=== PATIENT | female | born 1935 | race Caucasian/White ===

== ENCOUNTER 2016-09-17 12:35 | Inpatient (IN) | payer OTHER ==
[~2016-09-17] VITALS: Ht 165.1 cm; Wt 95.3 kg
[2016-09-17 12:35] VITALS: BP 160/72
[2016-09-17] MEDS ORDERED: DULOXETINE HCL60 MG PO (13:06)
[2016-09-17] MEDS ORDERED: ONETOUCH ULTRA1 EACH MC (13:06)
[2016-09-17 13:07] LABS: BASO # 0.1 10*3/uL (0.0-0.1); BASO % 0.7 % (0.0-1.0); EOS # 0.3 10*3/uL (0.0-0.4); EOS % 3.5 % (1.0-4.0); HEMATOCRIT 36.5 % (37.0-47.0); HEMOGLOBIN 12.3 g/dl (12.0-16.0); LYMPH # 3.2 10*3/uL (1.3-4.4); LYMPH % 41.8 % (27.0-41.0); MEAN CELL VOLUME 86.9 fl (81.0-99.0); MEAN CORPUSCULAR HGB 29.3 pg (27.0-31.0); MEAN CORPUSCULAR HGB CONC 33.7 g/dl (33.0-37.0); MEAN PLATELET VOLUME 10.6 fl (9.6-12.3); MONO # 0.6 10*3/uL (0.1-1.0); MONO % 7.8 % (3.0-9.0); NEUT # 3.5 10*3/uL (2.3-7.9); NEUT % 46.1 % (47.0-73.0); PLATELET COUNT AUTOMATED 174 10*3/uL (130-400); RED CELL DISTRI WIDTH 13.4 % (0-14.5); WHITE BLOOD COUNT 7.5 10*3/uL (4.8-10.8)
[2016-09-17] MEDS ORDERED: JANUVIA100 MG PO (13:07)
[2016-09-17] MEDS ORDERED: SPIRIVA -- 3018 MCG INH (13:07)
[2016-09-17] MEDS ORDERED: OMEPRAZOLE40 MG PO (13:07)
[2016-09-17] MEDS ORDERED: ACETAMINOPHEN &1 TA1 PO (13:07)
[2016-09-17] MEDS ORDERED: ASPIRIN ADULT L81 M2 PO (13:08)
[2016-09-17] MEDS ORDERED: LEVOTHYROXIN0.125 M1 PO (13:08)
[2016-09-17] MEDS ORDERED: MAGNESIUM500 MG PO (13:09)
[2016-09-17] MEDS ORDERED: VALSARTAN-HCTZ1 EAC1 PO (13:09)
[2016-09-17] MEDS ORDERED: LEVEMIR10 ML SC (13:10)
[2016-09-17 13:19] LABS: INTERNATIONAL NORM RATIO 1.1 (2.0-3.5); PROTHROMBIN TIME 11.2 SECONDS (9.0-12.4)
[2016-09-17 13:20] LABS: BILIRUBIN NEGATIVE (NEGATIVE); BLOOD NEGATIVE (NEGATIVE); CLARITY CLEAR (CLEAR); COLOR YELLOW (YELLOW); GLUCOSE NEGATIVE (NEGATIVE); KETONE NEGATIVE (NEGATIVE); LEUKO ESTERASE NEGATIVE (NEGATIVE); NITRITE NEGATIVE (NEGATIVE); PH 8.5 (5.0-9.0); PROTEIN NEGATIVE (NEGATIVE); UROBILINOGEN 0.2 E.U./dl (0.2-1.0)
[2016-09-17 13:22] LABS: ALKALINE PHOSPHATASE 70 U/L (45-117); BUN 17 mg/dl (7-24); C-REACTIVE PROTEIN < 0.29 MG/DL (0-0.3); CARBON DIOXIDE 32 mmol/L (21-32); CHLORIDE 106 mmol/L (98-107); CKMB 0.6 ng/ml (0.5-3.6); CPK 30 U/L (26-192); EST GLOM FILT AFRICAN AMERICAN 54 ml/min; GLUCOSE 138 mg/dL (65-99); MAGNESIUM 1.8 mg/dL (1.5-2.1); POTASSIUM 4.4 mmol/L (3.5-5.1); SGOT/AST 24 IU/L (3-35); SGPT/ALT 18 U/L (12-78); SODIUM 146 mmol/L (136-145); TROPONIN I 0.024 ng/ml (<0.045)
[2016-09-17 13:26] LABS: URINE REFLEX COMMENT NO (NO)
[2016-09-17 13:42] VITALS: BP 172/73
[2016-09-17 14:09] VITALS: BP 160/70
[2016-09-17 14:57] VITALS: BP 137/67
[2016-09-17 16:00] VITALS: BP 121/50
[2016-09-17] MEDS ORDERED: LEVEMIR FLEX100 U/ML SC (16:00)
[2016-09-17] MEDS ORDERED: NORCO 10-325 T1 EACH PO (16:04)
[2016-09-17 20:00] VITALS: BP 138/54
[2016-09-18] VITALS: BP 131/51
[2016-09-18 06:07] LABS: BASO % 0.4 % (0.0-1.0); EOS # 0.2 10*3/uL (0.0-0.4); HEMATOCRIT 32.3 % (37.0-47.0); HEMOGLOBIN 10.8 g/dl (12.0-16.0); LYMPH # 3.7 10*3/uL (1.3-4.4); LYMPH % 50.8 % (27.0-41.0); MEAN CELL VOLUME 88.3 fl (81.0-99.0); MEAN CORPUSCULAR HGB 29.5 pg (27.0-31.0); MEAN CORPUSCULAR HGB CONC 33.4 g/dl (33.0-37.0); MEAN PLATELET VOLUME 11.6 fl (9.6-12.3); MONO # 0.6 10*3/uL (0.1-1.0); MONO % 7.5 % (3.0-9.0); NEUT # 2.8 10*3/uL (2.3-7.9); NEUT % 38.2 % (47.0-73.0); NUCLEATED RED BLOOD CELL 0.3 % (0.0-0.0); PLATELET COUNT AUTOMATED 158 10*3/uL (130-400); RED BLOOD COUNT 3.66 10*6/uL (4.10-5.10); RED CELL DISTRI WIDTH 13.3 % (0-14.5); WHITE BLOOD COUNT 7.3 10*3/uL (4.8-10.8)
[2016-09-18 06:23] LABS: INTERNATIONAL NORM RATIO 1.1 (2.0-3.5); PROTHROMBIN TIME 11.5 SECONDS (9.0-12.4)
[2016-09-18 06:24] LABS: HEMOGLOBIN A1c 8.2 % (4.8-5.6)
[2016-09-18 06:26] LABS: ALBUMIN 2.3 gm/dl (3.1-4.5); ALKALINE PHOSPHATASE 63 U/L (45-117); BILIRUBIN, TOTAL 0.7 mg/dl (0.2-1.0); BUN 18 mg/dl (7-24); CARBON DIOXIDE 29 mmol/L (21-32); CHLORIDE 107 mmol/L (98-107); CHOLESTEROL 122 mg/dL (<200); EST GLOM FILT AFRICAN AMERICAN > 60 ml/min; GLUCOSE 203 mg/dL (65-99); HDL CHOLESTEROL 38 mg/dl (40-60); LDL CHOLESTEROL 67 mg/dL (9-159); MAGNESIUM 1.6 mg/dL (1.5-2.1); PHOSPHOROUS 2.9 mg/dL (2.5-4.9); SGOT/AST 18 IU/L (3-35); SGPT/ALT 17 U/L (12-78); SODIUM 143 mmol/L (136-145); TOTAL PROTEIN 4.9 gm/dL (6.4-8.2); TRIGLYCERIDES 85 mg/dl (<150); VLDL CHOLESTEROL 17 mg/dL (6-40)
[2016-09-18 06:31] LABS: THYROID STIM HORMONE (HS) 0.043 uIU/ml (0.358-4.75)
[2016-09-18 07:41] LABS: VITAMIN D, 25-HYDROXY 26.2 ng/mL (30-100)
[2016-09-18 07:42] LABS: FOLIC ACID 10.9 ng/mL (>5.38)
[2016-09-18 08:00] VITALS: BP 124/58
[2016-09-18 12:00] VITALS: BP 117/58
[2016-09-18 16:00] VITALS: BP 140/51
[2016-09-18 20:00] VITALS: BP 116/49; BP 126/51
[2016-09-19] VITALS: BP 157/68
[2016-09-19 06:51] LABS: BUN 14 mg/dl (7-24); CARBON DIOXIDE 29 mmol/L (21-32); CHLORIDE 108 mmol/L (98-107); EST GLOM FILT AFRICAN AMERICAN > 60 ml/min; GLUCOSE 127 mg/dL (65-99); SODIUM 146 mmol/L (136-145)
[2016-09-19 08:00] VITALS: BP 115/54
[2016-09-19 12:00] VITALS: BP 125/82
[2016-09-19 16:00] VITALS: BP 140/59
[2016-09-19 20:00] VITALS: BP 130/56
[2016-09-20] VITALS: BP 133/57
[2016-09-20 07:03] LABS: ALBUMIN 2.4 gm/dl (3.1-4.5); ALKALINE PHOSPHATASE 61 U/L (45-117); BILIRUBIN, TOTAL 0.6 mg/dl (0.2-1.0); BUN 18 mg/dl (7-24); CARBON DIOXIDE 26 mmol/L (21-32); CHLORIDE 110 mmol/L (98-107); EST GLOM FILT AFRICAN AMERICAN > 60 ml/min; GLUCOSE 104 mg/dL (65-99); POTASSIUM 3.7 mmol/L (3.5-5.1); SGOT/AST 19 IU/L (3-35); SGPT/ALT 17 U/L (12-78); SODIUM 143 mmol/L (136-145); TOTAL PROTEIN 5.3 gm/dL (6.4-8.2)
[2016-09-20 08:00] VITALS: BP 158/70
[2016-09-20 12:00] VITALS: BP 133/44
[2016-09-20] MEDS ORDERED: D-1000 185 MG-11 TAB PO (13:42)
[2016-09-20] MEDS ORDERED: LOPRESSOR25 MG PO (13:42)
== END 2016-09-20 15:44 | disposition other institution (70) | DRG 682 ==
LOC: ED 12:35 → EDHOLD 14:05 → 4E 14:05
PROVIDERS: Emergency Medicine; Internal Medicine
DX: N17.0 Acute kidney failure with tubular necrosis (principal); E43 Unspecified severe protein-calorie malnutrition; E86.0 Dehydration; E11.40 Type 2 diabetes mellitus with diabetic neuropathy, unspecified; F43.0 Acute stress reaction; E66.09 Other obesity due to excess calories; G47.00 Insomnia, unspecified; I10 Essential (primary) hypertension; R29.6 Repeated falls; F17.200 Nicotine dependence, unspecified, uncomplicated; W18.30XA Fall on same level, unspecified, initial encounter; E78.5 Hyperlipidemia, unspecified; E55.9 Vitamin D deficiency, unspecified; F32.9 Major depressive disorder, single episode, unspecified; Z88.8 Allergy status to other drugs, medicaments and biological substances; Z91.048 Other nonmedicinal substance allergy status; Z90.49 Acquired absence of other specified parts of digestive tract; Z90.710 Acquired absence of both cervix and uterus; Z79.82 Long term (current) use of aspirin; Z68.34 Body mass index [BMI] 34.0-34.9, adult; Z63.4 Disappearance and death of family member; Z71.6 Tobacco abuse counseling; Z79.4 Long term (current) use of insulin; Z79.899 Other long term (current) drug therapy; Y93.89 Activity, other specified; Y92.009 Unspecified place in unspecified non-institutional (private) residence as the place of occurrence of the external cause; Y99.8 Other external cause status

== ENCOUNTER 2016-10-22 10:13 | Inpatient (IN) | payer OTHER ==
[~2016-10-22] VITALS: Ht 165.1 cm; Wt 98.2 kg
[~2016-10-22 10:13] MED LIST: ACETAMINOPHEN &1 TA1 PO; ASPIRIN ADULT L81 M2 PO; D-1000 185 MG-11 TAB PO; DULOXETINE HCL60 MG PO; JANUVIA100 MG PO; LEVEMIR FL100 UNIT/1 SC; LEVEMIR10 ML SC; LEVOTHYROXIN0.125 M1 PO; LOPRESSOR25 MG PO; MAGNESIUM500 MG PO; NORCO 10-325 T1 EACH PO; OMEPRAZOLE40 MG PO; ONETOUCH ULTRA1 EACH MC; SPIRIVA -- 3018 MCG INH; VALSARTAN-HCTZ1 EAC1 PO
[2016-10-22 10:20] VITALS: BP 177/76
[2016-10-22 10:50] LABS: BILIRUBIN NEGATIVE (NEGATIVE); BLOOD 1+ (NEGATIVE); CLARITY SL CLOUDY (CLEAR); COLOR YELLOW (YELLOW); GLUCOSE NEGATIVE (NEGATIVE); KETONE NEGATIVE (NEGATIVE); LEUKO ESTERASE 2+ (NEGATIVE); NITRITE POSITIVE (NEGATIVE); PH 5.5 (5.0-9.0); PROTEIN 1+ (NEGATIVE)
[2016-10-22 10:58] LABS: BACTERIA 3+
[2016-10-22 10:58] LABS: BASO # 0.1 10*3/uL (0.0-0.1); BASO % 0.7 % (0.0-1.0); EOS # 0.3 10*3/uL (0.0-0.4); EOS % 3.8 % (1.0-4.0); HEMATOCRIT 37.4 % (37.0-47.0); HEMOGLOBIN 12.6 g/dl (12.0-16.0); LYMPH # 3.3 10*3/uL (1.3-4.4); LYMPH % 38.6 % (27.0-41.0); MEAN CELL VOLUME 86.8 fl (81.0-99.0); MEAN CORPUSCULAR HGB 29.2 pg (27.0-31.0); MEAN CORPUSCULAR HGB CONC 33.7 g/dl (33.0-37.0); MEAN PLATELET VOLUME 10.6 fl (9.6-12.3); MONO # 0.5 10*3/uL (0.1-1.0); MONO % 6.2 % (3.0-9.0); NEUT # 4.3 10*3/uL (2.3-7.9); NEUT % 50.6 % (47.0-73.0); PLATELET COUNT AUTOMATED 167 10*3/uL (130-400); RED BLOOD COUNT 4.31 10*6/uL (4.10-5.10); RED CELL DISTRI WIDTH 13.9 % (0-14.5); WHITE BLOOD COUNT 8.4 10*3/uL (4.8-10.8)
[2016-10-22 11:00] LABS: URINE REFLEX COMMENT YES (NO)
[2016-10-22 11:11] LABS: INTERNATIONAL NORM RATIO 1.1 (2.0-3.5); PROTHROMBIN TIME 11.8 SECONDS (9.0-12.4)
[2016-10-22 11:14] LABS: ALBUMIN 3.1 gm/dl (3.1-4.5); ALKALINE PHOSPHATASE 73 U/L (45-117); BILIRUBIN, TOTAL 1.1 mg/dl (0.2-1.0); BUN 14 mg/dl (7-24); CARBON DIOXIDE 31 mmol/L (21-32); CHLORIDE 104 mmol/L (98-107); CPK 67 U/L (26-192); EST GLOM FILT AFRICAN AMERICAN > 60 ml/min; GLUCOSE 151 mg/dL (65-99); MAGNESIUM 1.3 mg/dL (1.5-2.1); POTASSIUM 4.1 mmol/L (3.5-5.1); SGOT/AST 22 IU/L (3-35); SGPT/ALT 15 U/L (12-78); SODIUM 142 mmol/L (136-145); TOTAL PROTEIN 6.1 gm/dL (6.4-8.2); TROPONIN I 0.023 ng/ml (<0.045)
[2016-10-22 11:37] VITALS: BP 168/70
[2016-10-22 12:36] VITALS: BP 160/70
[2016-10-22 14:15] VITALS: BP 107/56
[2016-10-22] MEDS ORDERED: TRAD5TAB1 PO (15:37)
[2016-10-22] MEDS ORDERED: METFORMIN500 MG PO (15:41)
[2016-10-22] MEDS ORDERED: VALSARTAN-HCTZ1 EAC1 PO (15:43)
[2016-10-22 16:00] VITALS: BP 139/52
[2016-10-22 20:00] VITALS: BP 166/59
[2016-10-23] VITALS: BP 143/58
[2016-10-23 06:09] LABS: BASO # 0.1 10*3/uL (0.0-0.1); BASO % 0.7 % (0.0-1.0); EOS # 0.3 10*3/uL (0.0-0.4); EOS % 4.1 % (1.0-4.0); HEMATOCRIT 33.5 % (37.0-47.0); HEMOGLOBIN 11.3 g/dl (12.0-16.0); LYMPH # 3.9 10*3/uL (1.3-4.4); LYMPH % 52.4 % (27.0-41.0); MEAN CELL VOLUME 87.5 fl (81.0-99.0); MEAN CORPUSCULAR HGB 29.5 pg (27.0-31.0); MEAN CORPUSCULAR HGB CONC 33.7 g/dl (33.0-37.0); MEAN PLATELET VOLUME 11.1 fl (9.6-12.3); MONO # 0.6 10*3/uL (0.1-1.0); NEUT # 2.6 10*3/uL (2.3-7.9); NEUT % 34.7 % (47.0-73.0); PLATELET COUNT AUTOMATED 137 10*3/uL (130-400); RED BLOOD COUNT 3.83 10*6/uL (4.10-5.10); RED CELL DISTRI WIDTH 14.1 % (0-14.5); WHITE BLOOD COUNT 7.4 10*3/uL (4.8-10.8)
[2016-10-23 06:27] LABS: ALBUMIN 2.7 gm/dl (3.1-4.5); BUN 11 mg/dl (7-24); CARBON DIOXIDE 29 mmol/L (21-32); CHLORIDE 111 mmol/L (98-107); EST GLOM FILT AFRICAN AMERICAN > 60 ml/min; GLUCOSE 141 mg/dL (65-99); PHOSPHOROUS 2.3 mg/dL (2.5-4.9); POTASSIUM 3.9 mmol/L (3.5-5.1); SGOT/AST 22 IU/L (3-35); SGPT/ALT 14 U/L (12-78); SODIUM 145 mmol/L (136-145)
[2016-10-23 06:29] LABS: ALKALINE PHOSPHATASE 61 U/L (45-117); BILIRUBIN, TOTAL 0.8 mg/dl (0.2-1.0); TOTAL PROTEIN 5.4 gm/dL (6.4-8.2)
[2016-10-23 08:00] VITALS: BP 158/56
[2016-10-23 12:00] VITALS: BP 153/48
[2016-10-23 16:36] VITALS: BP 151/58
[2016-10-23 20:00] VITALS: BP 147/58
[2016-10-24] VITALS: BP 139/57
[2016-10-24 06:50] LABS: BASO # 0.1 10*3/uL (0.0-0.1); BASO % 0.7 % (0.0-1.0); EOS # 0.4 10*3/uL (0.0-0.4); EOS % 4.7 % (1.0-4.0); HEMATOCRIT 36.2 % (37.0-47.0); HEMOGLOBIN 11.8 g/dl (12.0-16.0); LYMPH # 4.9 10*3/uL (1.3-4.4); LYMPH % 56.6 % (27.0-41.0); MEAN CELL VOLUME 88.9 fl (81.0-99.0); MEAN CORPUSCULAR HGB CONC 32.6 g/dl (33.0-37.0); MONO # 0.7 10*3/uL (0.1-1.0); MONO % 7.6 % (3.0-9.0); NEUT # 2.6 10*3/uL (2.3-7.9); NEUT % 30.2 % (47.0-73.0); PLATELET COUNT AUTOMATED 165 10*3/uL (130-400); RED BLOOD COUNT 4.07 10*6/uL (4.10-5.10); RED CELL DISTRI WIDTH 14.2 % (0-14.5); WHITE BLOOD COUNT 8.7 10*3/uL (4.8-10.8)
[2016-10-24 07:00] LABS: BUN 8 mg/dl (7-24); CARBON DIOXIDE 31 mmol/L (21-32); CHLORIDE 109 mmol/L (98-107); EST GLOM FILT AFRICAN AMERICAN > 60 ml/min; GLUCOSE 94 mg/dL (65-99); POTASSIUM 3.3 mmol/L (3.5-5.1); SODIUM 145 mmol/L (136-145)
[2016-10-24 07:09] LABS: FREE T4 1.17 ng/dl (0.76-1.46)
[2016-10-24 08:00] VITALS: BP 148/46
[2016-10-24] MEDS ORDERED: BUTRANS1 EAC2 TD (10:04)
[2016-10-24 10:07] VITALS: BP 153/57
[2016-10-24 12:00] VITALS: BP 156/53
[2016-10-24 16:00] VITALS: BP 139/73
[2016-10-24 20:00] VITALS: BP 151/52
[2016-10-25] VITALS: BP 132/64
[2016-10-25 07:09] LABS: BUN 7 mg/dl (7-24); CARBON DIOXIDE 29 mmol/L (21-32); CHLORIDE 111 mmol/L (98-107); EST GLOM FILT AFRICAN AMERICAN > 60 ml/min; GLUCOSE 118 mg/dL (65-99); MAGNESIUM 1.7 mg/dL (1.5-2.1); PHOSPHOROUS 2.9 mg/dL (2.5-4.9); POTASSIUM 3.6 mmol/L (3.5-5.1); SODIUM 145 mmol/L (136-145)
[2016-10-25 08:00] VITALS: BP 147/61
[2016-10-25 12:00] VITALS: BP 128/51
[2016-10-25 16:00] VITALS: BP 132/55
[2016-10-25 20:00] VITALS: BP 146/62
[2016-10-26] VITALS: BP 145/51
[2016-10-26 08:00] VITALS: BP 148/76
[2016-10-26 12:00] VITALS: BP 134/44
[2016-10-26] MEDS ORDERED: AMINOPHYLLIN200 MG PO (12:58)
[2016-10-26 16:00] VITALS: BP 144/54
== END 2016-10-26 16:21 | disposition other institution (70) | DRG 689 ==
LOC: ED 10:13 → EDHOLD 12:26 → 5E 12:26
PROVIDERS: Emergency Medicine; Family Medicine; Internal Medicine; Internal Medicine Hospice and Palliative Medicine
DX: N39.0 Urinary tract infection, site not specified (principal); G93.41 Metabolic encephalopathy; E11.649 Type 2 diabetes mellitus with hypoglycemia without coma; E11.40 Type 2 diabetes mellitus with diabetic neuropathy, unspecified; E83.39 Other disorders of phosphorus metabolism; E83.42 Hypomagnesemia; I10 Essential (primary) hypertension; E78.2 Mixed hyperlipidemia; B96.20 Unspecified Escherichia coli [E. coli] as the cause of diseases classified elsewhere; E87.6 Hypokalemia; F17.210 Nicotine dependence, cigarettes, uncomplicated; K59.00 Constipation, unspecified; E66.09 Other obesity due to excess calories; Z68.36 Body mass index [BMI] 36.0-36.9, adult; Z63.4 Disappearance and death of family member; Z90.49 Acquired absence of other specified parts of digestive tract; Z71.6 Tobacco abuse counseling; Z79.4 Long term (current) use of insulin; Z79.82 Long term (current) use of aspirin; Z79.84 Long term (current) use of oral hypoglycemic drugs; Z79.899 Other long term (current) drug therapy; Z90.710 Acquired absence of both cervix and uterus; Z88.8 Allergy status to other drugs, medicaments and biological substances; Z91.048 Other nonmedicinal substance allergy status; Z82.49 Family history of ischemic heart disease and other diseases of the circulatory system

== ENCOUNTER 2017-01-02 11:06 | Inpatient (IN) | payer OTHER ==
[~2017-01-02] VITALS: Ht 162.5 cm; Wt 91.2 kg
[~2017-01-02 11:06] MED LIST changes: +AMINOPHYLLIN200 MG PO; +BUTRANS1 EAC2 TD; +METFORMIN500 MG PO; +TRAD5TAB1 PO
[2017-01-02 11:10] VITALS: BP 132/80
[2017-01-02 11:48] LABS: BASO # 0.1 10*3/uL (0.0-0.1); BASO % 0.7 % (0.0-1.0); EOS # 0.4 10*3/uL (0.0-0.4); EOS % 4.9 % (1.0-4.0); HEMOGLOBIN 11.6 g/dl (12.0-16.0); LYMPH # 3.1 10*3/uL (1.3-4.4); LYMPH % 42.5 % (27.0-41.0); MEAN CORPUSCULAR HGB CONC 34.1 g/dl (33.0-37.0); MEAN PLATELET VOLUME 11.3 fl (9.6-12.3); MONO # 0.6 10*3/uL (0.1-1.0); MONO % 7.9 % (3.0-9.0); NEUT # 3.2 10*3/uL (2.3-7.9); NEUT % 43.7 % (47.0-73.0); PLATELET COUNT AUTOMATED 156 10*3/uL (130-400); RED CELL DISTRI WIDTH 13.5 % (0-14.5); WHITE BLOOD COUNT 7.2 10*3/uL (4.8-10.8)
[2017-01-02 11:55] LABS: ACT PARTIAL THROMBO TIME 26.3 SECONDS (20.8-31.5); INTERNATIONAL NORM RATIO 1.1 (2.0-3.5)
[2017-01-02 12:03] LABS: ALBUMIN 2.8 gm/dl (3.1-4.5); ALKALINE PHOSPHATASE 67 U/L (45-117); BUN 11 mg/dl (7-24); CHLORIDE 108 mmol/L (98-107); CREATININE 0.74 mg/dL (0.55-1.02); LIPASE 875 U/L (73-393); POTASSIUM 3.7 mmol/L (3.5-5.1); SGOT/AST 27 IU/L (3-35); SGPT/ALT 16 U/L (12-78); SODIUM 145 mmol/L (136-145); TOTAL PROTEIN 5.6 gm/dL (6.4-8.2); TROPONIN I 0.019 ng/ml (<0.045)
--- NOTE | 2017-01-02 13:04 | NUR ---
REPORT CALLED TO [facility]. NOTIFIED OF PATIENT CARE DELAY IN REGARDS TO PATIENT GETTING A CT PRIOR TO GOING UPSTAIRS.
[2017-01-02 13:25] VITALS: BP 149/46
[2017-01-02 13:50] VITALS: BP 149/46
--- NOTE | 2017-01-02 14:06 | NUR ---
ATTMEPTED TO CALL PHYSICIAN ON RECENT ADMISSION DETAILS. WILL TRY AGAIN LATER.
--- NOTE | 2017-01-02 14:42 | NUR ---
DR. MCKENZIE MADE AWARE OF ASSUMED CARE OF PT. ORDERS ARE TO KEEP FLUIDS RUNNING, AND NPO STATUS FOR SUSPECTED PANCREATITIS. WILL CONINUE TO MONITOR PT.
[2017-01-02 16:00] VITALS: BP 154/54
--- NOTE | 2017-01-02 19:16 | NUR ---
NOTIFIED OF DNR CC MEASURE ON PT. SAID HE WOULD SIGN IT AND PUT THE ORDER IN.
[2017-01-02 20:00] VITALS: BP 136/72
[2017-01-02 22:11] LABS: BILIRUBIN NEGATIVE (NEGATIVE); BLOOD TRACE-INTACT (NEGATIVE); CLARITY CLEAR (CLEAR); COLOR YELLOW (YELLOW); GLUCOSE NEGATIVE (NEGATIVE); KETONE NEGATIVE (NEGATIVE); LEUKO ESTERASE NEGATIVE (NEGATIVE); NITRITE NEGATIVE (NEGATIVE); PH 5.5 (5.0-9.0); UROBILINOGEN 0.2 E.U./dl (0.2-1.0)
[2017-01-02 22:37] LABS: RBC 0-2 rbc/hpf (0-2); WBC 0-2 wbc/hpf (0-5)
--- NOTE | 2017-01-02 23:39 | NUR ---
PATIENT RESTING IN BED WITH NO S/S OF DISTRESS. RESPS EASY AND REGULAR. BED IN LOWEST POSITION, CALL LIGHT IN REACH
--- NOTE | 2017-01-02 23:52 | NUR ---
PT. RESTING IN BED. HEP LOCK IN TEN ASYMPT. LUNGS DIMINISHED WITH FINE PB RALES BILAT. ABDOMEN SOFT, NONDISTENDED AND NORMO. NO PERIPHERAL EDEMA NOTED. OSCAR MURPHY RN
[2017-01-03] VITALS: BP 151/51
[2017-01-03 06:07] LABS: BASO # 0.1 10*3/uL (0.0-0.1); BASO % 0.9 % (0.0-1.0); EOS # 0.3 10*3/uL (0.0-0.4); EOS % 4.2 % (1.0-4.0); HEMATOCRIT 34.7 % (37.0-47.0); HEMOGLOBIN 11.6 g/dl (12.0-16.0); LYMPH # 3.4 10*3/uL (1.3-4.4); LYMPH % 43.4 % (27.0-41.0); MEAN CELL VOLUME 85.5 fl (81.0-99.0); MEAN CORPUSCULAR HGB 28.6 pg (27.0-31.0); MEAN CORPUSCULAR HGB CONC 33.4 g/dl (33.0-37.0); MEAN PLATELET VOLUME 11.2 fl (9.6-12.3); MONO # 0.6 10*3/uL (0.1-1.0); NEUT # 3.4 10*3/uL (2.3-7.9); NEUT % 43.4 % (47.0-73.0); PLATELET COUNT AUTOMATED 156 10*3/uL (130-400); RED BLOOD COUNT 4.06 10*6/uL (4.10-5.10); RED CELL DISTRI WIDTH 13.6 % (0-14.5); WHITE BLOOD COUNT 7.8 10*3/uL (4.8-10.8)
[2017-01-03 06:39] LABS: ALBUMIN 2.7 gm/dl (3.1-4.5); ALKALINE PHOSPHATASE 67 U/L (45-117); BUN 11 mg/dl (7-24); CHLORIDE 106 mmol/L (98-107); CREATININE 0.81 mg/dL (0.55-1.02); FREE T4 1.65 ng/dl (0.76-1.46); PHOSPHOROUS 3.3 mg/dL (2.5-4.9); POTASSIUM 3.5 mmol/L (3.5-5.1); SGOT/AST 25 IU/L (3-35); SGPT/ALT 15 U/L (12-78); SODIUM 144 mmol/L (136-145); TOTAL PROTEIN 5.5 gm/dL (6.4-8.2)
[2017-01-03 06:44] LABS: THYROID STIM HORMONE (HS) 0.055 uIU/ml (0.358-4.75)
[2017-01-03 07:01] LABS: VITAMIN D, 25-HYDROXY 37.9 ng/mL (30-100)
[2017-01-03 08:00] VITALS: BP 140/56
--- NOTE | 2017-01-03 08:15 | NUR ---
CHANNEL MARKETING SPECIALIST VS. SLEEPING SOUNDLY. COMES FROM [facility]. WILL CHECK FOR RETURN NEEDS.
[2017-01-03 08:27] LABS: ACT PARTIAL THROMBO TIME 27.4 SECONDS (20.8-31.5); INTERNATIONAL NORM RATIO 1.1 (2.0-3.5)
[2017-01-03 12:00] VITALS: BP 136/47
[2017-01-03 16:00] VITALS: BP 140/43
--- NOTE | 2017-01-03 19:55 | NUR ---
PT. IS RESTING IN BED COMFORTABLY AT THIS TIME, NO S/S OF DISTRESS. RESPERS ARE EASY AND REGULAR, DIMINISHED T/O WITH FINE CRACKLES AT THE BASES. BED IS LOW, CALL LIGHT IN REACH. SEE SHIFT ASSESSMENT.
[2017-01-03 20:00] VITALS: BP 152/49
[2017-01-04] VITALS: BP 142/52
[2017-01-04 05:56] LABS: BASO % 0.6 % (0.0-1.0); EOS # 0.3 10*3/uL (0.0-0.4); EOS % 4.7 % (1.0-4.0); HEMATOCRIT 31.4 % (37.0-47.0); HEMOGLOBIN 10.5 g/dl (12.0-16.0); LYMPH # 3.5 10*3/uL (1.3-4.4); LYMPH % 51.2 % (27.0-41.0); MEAN CELL VOLUME 85.3 fl (81.0-99.0); MEAN CORPUSCULAR HGB 28.5 pg (27.0-31.0); MEAN CORPUSCULAR HGB CONC 33.4 g/dl (33.0-37.0); MEAN PLATELET VOLUME 11.2 fl (9.6-12.3); MONO # 0.6 10*3/uL (0.1-1.0); MONO % 8.2 % (3.0-9.0); NEUT # 2.4 10*3/uL (2.3-7.9); NEUT % 35.2 % (47.0-73.0); PLATELET COUNT AUTOMATED 141 10*3/uL (130-400); RED BLOOD COUNT 3.68 10*6/uL (4.10-5.10); RED CELL DISTRI WIDTH 13.5 % (0-14.5); WHITE BLOOD COUNT 6.8 10*3/uL (4.8-10.8)
[2017-01-04 06:02] LABS: ALBUMIN 2.5 gm/dl (3.1-4.5); BUN 11 mg/dl (7-24); CHLORIDE 105 mmol/L (98-107); CREATININE 0.77 mg/dL (0.55-1.02); POTASSIUM 3.2 mmol/L (3.5-5.1); SGOT/AST 22 IU/L (3-35); SODIUM 143 mmol/L (136-145)
[2017-01-04 06:04] LABS: ALKALINE PHOSPHATASE 64 U/L (45-117); SGPT/ALT 11 U/L (12-78); TOTAL PROTEIN 5.2 gm/dL (6.4-8.2)
[2017-01-04 08:00] VITALS: BP 145/42
--- NOTE | 2017-01-04 08:30 | NUR ---
Patient resting quietly with no c/o discomfort. Respirations easy and regular. Vital signs stable. No overt distress. MALDONADO BANDA R
[2017-01-04 12:00] VITALS: BP 122/46
--- NOTE | 2017-01-04 12:58 | NUR ---
MEDICATED IV MORPHINE FOR C/O LOWER ABDOMINAL PAIN. RATES PAIN 10/10 ON PAIN SCALE. WILL CONTINUE TO MONITOR.
[2017-01-04 16:00] VITALS: BP 151/89
[2017-01-04 20:00] VITALS: BP 152/58
--- NOTE | 2017-01-04 20:00 | NUR ---
PT. IS RESTING IN BED COMFORTABLY AT THIS TIME WITH VISITOR AT BEDSIDE. NO S/S OF DISTRESS NOTED. RESPERS ARE EASY AND REGULAR WITH CALL LIGHT IN REACH, HOB ELEVATED AND BED IN LOWEST POSITION. SEE SHIFT ASSESSMEN.
[2017-01-05] VITALS: BP 146/51
--- NOTE | 2017-01-05 05:54 | NUR ---
PRN MORPHINE GIVEN FOR PT. C/O BACK, LEG AND HIP PAIN. RATING A 8/10. WILL MONITOR EFFECT.
[2017-01-05 08:00] VITALS: BP 137/55
[2017-01-05 12:00] VITALS: BP 158/55
[2017-01-05] MEDS ORDERED: Insulin Lispro, Reco SC (12:59)
[2017-01-05] MEDS ORDERED: Synthroid,Lev100 MCG PO (12:59)
--- NOTE | 2017-01-05 14:35 | NUR ---
Ok for patient to return to [facility] with updates.
--- NOTE | 2017-01-05 14:55 | NUR ---
Patient is being discharged back to [facility], does not qualify for ambulance transportation. Left voicemail for daughter asking if she could return to hospital and transport patient. Waiting for return call.
--- NOTE | 2017-01-05 16:35 | NUR ---
Discharge instructions reviewed with patient/family. Patient receptive and verbalizes understanding. Follow-up care arranged. Written instructions given to patient/family. EMIGDIO KNOTT
--- NOTE | 2017-01-05 16:42 | NUR ---
NURSE TO NURSE CALLED IN TO [facility]
== END 2017-01-05 16:42 | disposition home or self-care (01) | DRG 438 ==
LOC: ED 11:06 → EDHOLD 12:35 → 4E 12:35
PROVIDERS: Emergency Medicine; Internal Medicine; ADMIT Internal Medicine
DX: K85.90 Acute pancreatitis without necrosis or infection, unspecified (principal); G93.41 Metabolic encephalopathy; E43 Unspecified severe protein-calorie malnutrition; I50.33 Acute on chronic diastolic (congestive) heart failure; E11.65 Type 2 diabetes mellitus with hyperglycemia; E87.8 Other disorders of electrolyte and fluid balance, not elsewhere classified; I11.0 Hypertensive heart disease with heart failure; D64.9 Anemia, unspecified; Z51.5 Encounter for palliative care; F17.210 Nicotine dependence, cigarettes, uncomplicated; E66.9 Obesity, unspecified; E78.5 Hyperlipidemia, unspecified; Z66 Do not resuscitate; E03.9 Hypothyroidism, unspecified; K74.60 Unspecified cirrhosis of liver; Z88.8 Allergy status to other drugs, medicaments and biological substances; Z91.048 Other nonmedicinal substance allergy status; Z79.899 Other long term (current) drug therapy; Z79.82 Long term (current) use of aspirin; Z79.4 Long term (current) use of insulin; Z68.38 Body mass index [BMI] 38.0-38.9, adult; Z90.49 Acquired absence of other specified parts of digestive tract; Z90.710 Acquired absence of both cervix and uterus; Z82.49 Family history of ischemic heart disease and other diseases of the circulatory system

== ENCOUNTER 2017-01-06 15:18 | Emergency (ER) | payer OTHER ==
[~2017-01-06] VITALS: Ht 170.1 cm; Wt 113.4 kg
[~2017-01-06 15:18] MED LIST changes: +Insulin Lispro, Reco SC; +Synthroid,Lev100 MCG PO
[2017-01-06 15:23] VITALS: BP 162/66
[2017-01-06 16:18] LABS: BASO % 0.6 % (0.0-1.0); EOS # 0.3 10*3/uL (0.0-0.4); EOS % 4.8 % (1.0-4.0); HEMATOCRIT 34.8 % (37.0-47.0); HEMOGLOBIN 11.8 g/dl (12.0-16.0); LYMPH # 2.4 10*3/uL (1.3-4.4); LYMPH % 38.3 % (27.0-41.0); MEAN CELL VOLUME 85.1 fl (81.0-99.0); MEAN CORPUSCULAR HGB 28.9 pg (27.0-31.0); MEAN CORPUSCULAR HGB CONC 33.9 g/dl (33.0-37.0); MEAN PLATELET VOLUME 10.7 fl (9.6-12.3); MONO # 0.5 10*3/uL (0.1-1.0); MONO % 7.5 % (3.0-9.0); NEUT % 48.6 % (47.0-73.0); PLATELET COUNT AUTOMATED 148 10*3/uL (130-400); RED BLOOD COUNT 4.09 10*6/uL (4.10-5.10); RED CELL DISTRI WIDTH 13.6 % (0-14.5); WHITE BLOOD COUNT 6.2 10*3/uL (4.8-10.8)
[2017-01-06 16:27] LABS: ACT PARTIAL THROMBO TIME 25.1 SECONDS (20.8-31.5); INTERNATIONAL NORM RATIO 1.1 (2.0-3.5)
[2017-01-06 16:36] VITALS: BP 156/52
[2017-01-06 16:36] LABS: ALBUMIN 2.9 gm/dl (3.1-4.5); ALKALINE PHOSPHATASE 74 U/L (45-117); BUN 7 mg/dl (7-24); CHLORIDE 107 mmol/L (98-107); CREATININE 0.68 mg/dL (0.55-1.02); POTASSIUM 3.7 mmol/L (3.5-5.1); SGOT/AST 25 IU/L (3-35); SGPT/ALT 14 U/L (12-78); SODIUM 144 mmol/L (136-145); TOTAL PROTEIN 5.8 gm/dL (6.4-8.2)
[2017-01-06 16:37] LABS: TROPONIN I 0.023 ng/ml (<0.045)
[2017-01-06 16:55] LABS: BILIRUBIN NEGATIVE (NEGATIVE); BLOOD 1+ (NEGATIVE); CLARITY CLEAR (CLEAR); COLOR YELLOW (YELLOW); GLUCOSE NEGATIVE (NEGATIVE); KETONE NEGATIVE (NEGATIVE); LEUKO ESTERASE NEGATIVE (NEGATIVE); NITRITE NEGATIVE (NEGATIVE); UROBILINOGEN 0.2 E.U./dl (0.2-1.0)
[2017-01-06 17:04] LABS: BACTERIA TRACE; URINE AMPHETAMINES < 1000 (1000ng/ml); URINE BARBITURATES < 200 (200ng/ml); URINE BENZODIAZEPINES < 200 (200ng/ml); URINE CANNABINOIDS (THC) < 50 (50ng/ml); URINE COCAINE < 300 (300ng/ml); URINE METHADONE < 300 (300ng/ml); URINE OPIATES < 300 (300ng/ml); WBC 0-2 wbc/hpf (0-5)
[2017-01-06 17:06] LABS: URINE PHENCYCLIDINE < 25 (25ng/ml)
--- NOTE | 2017-01-06 17:07 | NUR ---
ROBERT SPOKE WITH DR JACOBSON REGARDING THE WANT FOR PT TO BE TRANSFERED TO [facility]
[2017-01-06 17:31] VITALS: BP 124/61
--- NOTE | 2017-01-06 18:19 | NUR ---
SPOKE WITH NURSE FROM [facility]. GAVE HER UPDATE REGARDING PATIENT AT THIS TIME.
--- NOTE | 2017-01-06 18:43 | NUR ---
Transfer Out, from the Emergency Department - Stable This patient, BROOKE RAMIREZ, 81, 35, [id number], [id number], was examined by the Emergency Department physician, Dr. INDIRA NOONAN,JAILENE and efforts were made to stabilize the patient. The patient's condition is stable. The reason for transfer is Request by PCP/Family Doc . The Emergency physician has made the decision to transfer the patient out. Refer to the ED physician's dictation for the family/back-up physician notified. The attending physician has spoken to the accepting physician at the receiving facility, DR BECKETT. Refer to the ED physician's dictation. The receiving facility has space and qualified personnel to care for the patient, and has agreed to accept the patient. Proper equipment and trained personnel have been arranged. The mode of transport is ground. The agency is [facility] The Emergency physician has spoken to the transport staff re: patient's condition and needs during transport. Copies of the medical record have been forwarded to the receiving facility, including: - Emergency Department record: - name, address, hospital number, age, next of kin - presenting problem - history of injury, past medical history - treatment, medications & route, fluid type & volume - lab and xray findings, films - physical findings - vitals signs -- prehospital, emergency, pre-transfer - preliminary diagnosis - status/condition - emergency medical services record - consent for transfer - authorization for record release - name of any involed physicians -- responsive or not - name and address of referring physician - name of contact physician at receiving facility - name of accepting physician at receiving facility Nursing report has been given to . Valuables include [facility]. and were given to [facility]. IFONA NICOLE
== END 2017-01-06 18:40 | disposition short-term general hospital (02) ==
LOC: ED 15:18 → EDHOLD 16:32 → 4E 16:49 → ED 18:40
PROVIDERS: Emergency Medicine
DX: G93.40 Encephalopathy, unspecified (principal); F17.200 Nicotine dependence, unspecified, uncomplicated; E11.8 Type 2 diabetes mellitus with unspecified complications; I50.32 Chronic diastolic (congestive) heart failure; I11.0 Hypertensive heart disease with heart failure

== ENCOUNTER 2017-04-27 12:07 | Inpatient (IN) | payer OTHER ==
[~2017-04-27] VITALS: Ht 167.6 cm; Wt 103.4 kg
[2017-04-27 12:07] VITALS: BP 93/29
[2017-04-27 12:42] LABS: BILIRUBIN NEGATIVE (NEGATIVE); BLOOD NEGATIVE (NEGATIVE); CLARITY CLEAR (CLEAR); COLOR YELLOW (YELLOW); GLUCOSE NEGATIVE (NEGATIVE); KETONE NEGATIVE (NEGATIVE); LEUKO ESTERASE NEGATIVE (NEGATIVE); NITRITE NEGATIVE (NEGATIVE); PH 5.5 (5.0-9.0); SPECIFIC GRAVITY 1.015 (1.005-1.030)
[2017-04-27 12:45] VITALS: BP 100/37
[2017-04-27 12:55] LABS: BASO # 0.1 10*3/uL (0.0-0.1); BASO % 1.1 % (0.0-1.0); EOS # 0.3 10*3/uL (0.0-0.4); EOS % 3.2 % (1.0-4.0); HEMATOCRIT 36.7 % (37.0-47.0); HEMOGLOBIN 12.1 g/dl (12.0-16.0); LYMPH % 37.3 % (27.0-41.0); MEAN CELL VOLUME 86.6 fl (81.0-99.0); MEAN CORPUSCULAR HGB 28.5 pg (27.0-31.0); MEAN PLATELET VOLUME 11.3 fl (9.6-12.3); MONO # 0.6 10*3/uL (0.1-1.0); MONO % 7.9 % (3.0-9.0); NEUT # 4.1 10*3/uL (2.3-7.9); NEUT % 50.3 % (47.0-73.0); PLATELET COUNT AUTOMATED 180 10*3/uL (130-400); RED BLOOD COUNT 4.24 10*6/uL (4.10-5.10); RED CELL DISTRI WIDTH 14.6 % (0-14.5); WHITE BLOOD COUNT 8.1 10*3/uL (4.8-10.8)
[2017-04-27] MEDS ORDERED: HUMALOG100 UNIT/2 SQ ×2 (12:58→13:04)
[2017-04-27] MEDS ORDERED: LISINOPRIL5 MG PO (12:58)
[2017-04-27] MEDS ORDERED: MELATONIN3 MG PO (12:59)
[2017-04-27] MEDS ORDERED: NEURONTIN300 MG PO (12:59)
[2017-04-27] MEDS ORDERED: POTASSIUM CHLO20 ME3 PO (13:00)
[2017-04-27] MEDS ORDERED: LACTULOSE10 GM/151 PO (13:00)
[2017-04-27] MEDS ORDERED: BUMETANIDE0.5 MG PO (13:01)
[2017-04-27] MEDS ORDERED: MEMANTINE HCL5 MG PO (13:01)
[2017-04-27] MEDS ORDERED: TYLENOL325 M1 PO (13:02)
[2017-04-27] MEDS ORDERED: LEVOXYL75 MCG PO (13:02)
[2017-04-27] MEDS ORDERED: MAGNESIUM400 M1 PO (13:03)
[2017-04-27] MEDS ORDERED: DUONEB 3 MG/3 ML3 M1 INH (13:03)
[2017-04-27] MEDS ORDERED: XIFAXAN550 MG PO (13:05)
[2017-04-27] MEDS ORDERED: GLYCOLAX119 GM PO (13:06)
[2017-04-27] MEDS ORDERED: VITAMIN D5000 UNI1 PO (13:06)
[2017-04-27] MEDS ORDERED: ASPIRIN81 M1 PO (13:06)
[2017-04-27] MEDS ORDERED: LOPRESSOR25 MG PO (13:07)
[2017-04-27] MEDS ORDERED: TRAD5TAB1 PO (13:07)
[2017-04-27 13:10] LABS: ALBUMIN 3.3 gm/dl (3.1-4.5); CREATININE 1.86 mg/dL (0.55-1.02); POTASSIUM 3.8 mmol/L (3.5-5.1); TOTAL PROTEIN 6.8 gm/dL (6.4-8.2)
[2017-04-27 13:15] LABS: BACTERIA 2+; HYALINE CAST TNTC
[2017-04-27 13:29] VITALS: BP 110/43
[2017-04-27 14:10] VITALS: BP 115/46
[2017-04-27 15:04] VITALS: BP 108/62
[2017-04-27] MEDS ORDERED: LANTUS SOL100 UNIT/1 SQ (18:37)
[2017-04-27] MEDS ORDERED: HUMALOG100 UNIT/1 SQ ×2 (18:43→18:47)
[2017-04-27 20:00] VITALS: BP 103/70
[2017-04-28] VITALS: BP 132/90
[2017-04-28 07:46] LABS: BASO # 0.1 10*3/uL (0.0-0.1); BASO % 0.9 % (0.0-1.0); EOS # 0.2 10*3/uL (0.0-0.4); EOS % 2.3 % (1.0-4.0); HEMATOCRIT 33.7 % (37.0-47.0); LYMPH # 3.1 10*3/uL (1.3-4.4); LYMPH % 40.1 % (27.0-41.0); MEAN CELL VOLUME 87.5 fl (81.0-99.0); MEAN CORPUSCULAR HGB 28.6 pg (27.0-31.0); MEAN CORPUSCULAR HGB CONC 32.6 g/dl (33.0-37.0); MEAN PLATELET VOLUME 11.9 fl (9.6-12.3); MONO # 0.6 10*3/uL (0.1-1.0); MONO % 7.3 % (3.0-9.0); NEUT # 3.9 10*3/uL (2.3-7.9); NEUT % 49.3 % (47.0-73.0); PLATELET COUNT AUTOMATED 162 10*3/uL (130-400); RED BLOOD COUNT 3.85 10*6/uL (4.10-5.10); WHITE BLOOD COUNT 7.8 10*3/uL (4.8-10.8)
[2017-04-28 08:00] VITALS: BP 130/36
[2017-04-28 08:02] LABS: ALBUMIN 2.9 gm/dl (3.1-4.5); POTASSIUM 4.2 mmol/L (3.5-5.1)
[2017-04-28 08:09] LABS: CREATININE 1.62 mg/dL (0.55-1.02); FREE T4 1.14 ng/dl (0.76-1.46); PHOSPHOROUS 3.5 mg/dL (2.5-4.9); THYROID STIM HORMONE (HS) 0.668 uIU/ml (0.358-4.75); TOTAL PROTEIN 6.1 gm/dL (6.4-8.2)
[2017-04-28 11:50] VITALS: BP 108/61
[2017-04-28 16:00] VITALS: BP 154/50
[2017-04-28 20:00] VITALS: BP 123/50
[2017-04-29] VITALS: BP 122/46
[2017-04-29 05:57] LABS: BASO % 0.6 % (0.0-1.0); EOS # 0.3 10*3/uL (0.0-0.4); HEMATOCRIT 32.9 % (37.0-47.0); HEMOGLOBIN 10.5 g/dl (12.0-16.0); LYMPH # 3.8 10*3/uL (1.3-4.4); LYMPH % 58.5 % (27.0-41.0); MEAN CELL VOLUME 89.2 fl (81.0-99.0); MEAN CORPUSCULAR HGB 28.5 pg (27.0-31.0); MEAN CORPUSCULAR HGB CONC 31.9 g/dl (33.0-37.0); MEAN PLATELET VOLUME 11.4 fl (9.6-12.3); MONO # 0.6 10*3/uL (0.1-1.0); MONO % 8.6 % (3.0-9.0); NEUT # 1.8 10*3/uL (2.3-7.9); NEUT % 28.1 % (47.0-73.0); PLATELET COUNT AUTOMATED 147 10*3/uL (130-400); RED BLOOD COUNT 3.69 10*6/uL (4.10-5.10); RED CELL DISTRI WIDTH 14.8 % (0-14.5); WHITE BLOOD COUNT 6.5 10*3/uL (4.8-10.8)
[2017-04-29 06:27] LABS: ALBUMIN 2.8 gm/dl (3.1-4.5); POTASSIUM 3.8 mmol/L (3.5-5.1)
[2017-04-29 06:32] LABS: CREATININE 1.77 mg/dL (0.55-1.02); TOTAL PROTEIN 5.9 gm/dL (6.4-8.2)
[2017-04-29 08:00] VITALS: BP 113/48
[2017-04-29 12:00] VITALS: BP 139/60
[2017-04-29] MEDS ORDERED: LACTULOSE20 GM/30 M PO (13:37)
== END 2017-04-29 14:50 | DRG 441 ==
LOC: ED 12:07 → EDHOLD 13:44 → 5E 13:44
PROVIDERS: Emergency Medicine; Internal Medicine
DX: K72.90 Hepatic failure, unspecified without coma (principal); N17.0 Acute kidney failure with tubular necrosis; E43 Unspecified severe protein-calorie malnutrition; E87.0 Hyperosmolality and hypernatremia; I50.32 Chronic diastolic (congestive) heart failure; E72.20 Disorder of urea cycle metabolism, unspecified; I11.0 Hypertensive heart disease with heart failure; E66.01 Morbid (severe) obesity due to excess calories; R00.1 Bradycardia, unspecified; E78.5 Hyperlipidemia, unspecified; R29.6 Repeated falls; E55.9 Vitamin D deficiency, unspecified; E03.9 Hypothyroidism, unspecified; K74.60 Unspecified cirrhosis of liver; Z66 Do not resuscitate; G47.00 Insomnia, unspecified; E11.40 Type 2 diabetes mellitus with diabetic neuropathy, unspecified; F17.200 Nicotine dependence, unspecified, uncomplicated; Z51.5 Encounter for palliative care; Z79.4 Long term (current) use of insulin; Z90.49 Acquired absence of other specified parts of digestive tract; Z90.710 Acquired absence of both cervix and uterus; Z82.49 Family history of ischemic heart disease and other diseases of the circulatory system; Z88.8 Allergy status to other drugs, medicaments and biological substances; Z79.899 Other long term (current) drug therapy; Z68.36 Body mass index [BMI] 36.0-36.9, adult

== ENCOUNTER 2017-06-21 14:03 | Inpatient (IN) | payer OTHER ==
[~2017-06-21] VITALS: Ht 162.6 cm; Wt 103.1 kg
[2017-06-21 14:03] VITALS: BP 122/51
[~2017-06-21 14:03] MED LIST changes: +ASPIRIN81 M1 PO; +BUMETANIDE0.5 MG PO; +DUONEB 3 MG/3 ML3 M1 INH; +GLYCOLAX119 GM PO; +HUMALOG100 UNIT/1 SQ; +HUMALOG100 UNIT/2 SQ; +LACTULOSE10 GM/151 PO; +LACTULOSE20 GM/30 M PO; +LANTUS SOL100 UNIT/1 SQ; +LEVOXYL75 MCG PO; +LISINOPRIL5 MG PO; +MAGNESIUM400 M1 PO; +MELATONIN3 MG PO; +MEMANTINE HCL5 MG PO; +NEURONTIN300 MG PO; +POTASSIUM CHLO20 ME3 PO; +TYLENOL325 M1 PO; +VITAMIN D5000 UNI1 PO; +XIFAXAN550 MG PO
[2017-06-21 14:43] LABS: BASO # 0.1 10*3/uL (0.0-0.1); BASO % 1.2 % (0.0-1.0); EOS # 0.2 10*3/uL (0.0-0.4); EOS % 3.8 % (1.0-4.0); HEMOGLOBIN 12.2 g/dl (12.0-16.0); LYMPH % 49.1 % (27.0-41.0); MEAN CELL VOLUME 87.9 fl (81.0-99.0); MEAN PLATELET VOLUME 11.5 fl (9.6-12.3); MONO # 0.6 10*3/uL (0.1-1.0); MONO % 10.1 % (3.0-9.0); NEUT # 2.1 10*3/uL (2.3-7.9); NEUT % 35.5 % (47.0-73.0); PLATELET COUNT AUTOMATED 171 10*3/uL (130-400); RED BLOOD COUNT 4.21 10*6/uL (4.10-5.10); RED CELL DISTRI WIDTH 14.4 % (0-14.5)
[2017-06-21 14:55] LABS: ACT PARTIAL THROMBO TIME 23.5 SECONDS (20.8-31.5); INTERNATIONAL NORM RATIO 1.1 (2.0-3.5)
[2017-06-21 15:05] LABS: ALBUMIN 3.3 gm/dl (3.1-4.5); ALKALINE PHOSPHATASE 66 U/L (45-117); BUN 44 mg/dl (7-24); CHLORIDE 105 mmol/L (98-107); CREATININE 2.16 mg/dL (0.55-1.02); LIPASE 486 U/L (73-393); POTASSIUM 4.6 mmol/L (3.5-5.1); SGOT/AST 22 IU/L (3-35); SGPT/ALT 14 U/L (12-78); SODIUM 140 mmol/L (136-145); TOTAL PROTEIN 6.9 gm/dL (6.4-8.2)
[2017-06-21 15:06] LABS: TROPONIN I < 0.015 ng/ml (<0.045)
[2017-06-21 15:29] LABS: BILIRUBIN NEGATIVE (NEGATIVE); BLOOD NEGATIVE (NEGATIVE); CLARITY CLEAR (CLEAR); COLOR YELLOW (YELLOW); GLUCOSE NEGATIVE (NEGATIVE); KETONE NEGATIVE (NEGATIVE); LEUKO ESTERASE NEGATIVE (NEGATIVE); NITRITE NEGATIVE (NEGATIVE); UROBILINOGEN 0.2 E.U./dl (0.2-1.0)
[2017-06-21 15:43] LABS: HYALINE CAST 30-*35
[2017-06-21 15:44] LABS: BACTERIA TRACE; RBC 0-2 rbc/hpf (0-2)
[2017-06-21 16:00] VITALS: BP 128/47
[2017-06-21 16:45] VITALS: BP 121/45
[2017-06-21] MEDS ORDERED: CYMBALTA60 MG PO (16:51)
[2017-06-21] MEDS ORDERED: CONSTULOSE10 GM/151 PO (16:52)
[2017-06-21] MEDS ORDERED: PLAVIX75 M1 PO (16:53)
[2017-06-21 17:00] VITALS: BP 121/45
[2017-06-21 20:00] VITALS: BP 133/56
[2017-06-22] VITALS: BP 130/56
[2017-06-22 06:30] LABS: BASO # 0.1 10*3/uL (0.0-0.1); BASO % 0.9 % (0.0-1.0); EOS # 0.2 10*3/uL (0.0-0.4); EOS % 3.1 % (1.0-4.0); HEMATOCRIT 33.6 % (37.0-47.0); HEMOGLOBIN 11.1 g/dl (12.0-16.0); LYMPH # 3.6 10*3/uL (1.3-4.4); LYMPH % 56.1 % (27.0-41.0); MEAN CELL VOLUME 87.7 fl (81.0-99.0); MEAN PLATELET VOLUME 11.3 fl (9.6-12.3); MONO # 0.6 10*3/uL (0.1-1.0); MONO % 10.1 % (3.0-9.0); NEUT # 1.9 10*3/uL (2.3-7.9); NEUT % 29.6 % (47.0-73.0); PLATELET COUNT AUTOMATED 148 10*3/uL (130-400); RED BLOOD COUNT 3.83 10*6/uL (4.10-5.10); RED CELL DISTRI WIDTH 14.3 % (0-14.5); WHITE BLOOD COUNT 6.4 10*3/uL (4.8-10.8)
[2017-06-22 06:47] LABS: CREATININE 1.77 mg/dL (0.55-1.02); PHOSPHOROUS 3.8 mg/dL (2.5-4.9)
[2017-06-22 06:58] LABS: THYROID STIM HORMONE (HS) 1.51 uIU/ml (0.358-4.75)
[2017-06-22 08:00] VITALS: BP 118/42
[2017-06-22 12:00] VITALS: BP 131/48
[2017-06-22] MEDS ORDERED: CONSTULOSE10 GM/151 PO (12:02)
[2017-06-22] MEDS ORDERED: BUMETANIDE0.5 MG PO (12:02)
== END 2017-06-22 15:08 | DRG 441 ==
LOC: ED 14:03 → 4E 16:08 → EDHOLD 16:08 → 4E 16:17
PROVIDERS: Emergency Medicine; Internal Medicine
DX: K72.90 Hepatic failure, unspecified without coma (principal); N17.0 Acute kidney failure with tubular necrosis; G93.41 Metabolic encephalopathy; E44.1 Mild protein-calorie malnutrition; I50.32 Chronic diastolic (congestive) heart failure; Z68.44 Body mass index [BMI] 60.0-69.9, adult; I13.0 Hypertensive heart and chronic kidney disease with heart failure and stage 1 through stage 4 chronic kidney disease, or unspecified chronic kidney disease; K74.60 Unspecified cirrhosis of liver; E11.22 Type 2 diabetes mellitus with diabetic chronic kidney disease; D72.820 Lymphocytosis (symptomatic); E11.40 Type 2 diabetes mellitus with diabetic neuropathy, unspecified; E55.9 Vitamin D deficiency, unspecified; E78.5 Hyperlipidemia, unspecified; E86.0 Dehydration; N18.3 Chronic kidney disease, stage 3 (moderate); E03.9 Hypothyroidism, unspecified; Z66 Do not resuscitate; Z51.5 Encounter for palliative care; R00.1 Bradycardia, unspecified; F17.210 Nicotine dependence, cigarettes, uncomplicated; Z79.4 Long term (current) use of insulin; E66.9 Obesity, unspecified; Z90.49 Acquired absence of other specified parts of digestive tract; Z90.710 Acquired absence of both cervix and uterus; Z82.49 Family history of ischemic heart disease and other diseases of the circulatory system; Z88.8 Allergy status to other drugs, medicaments and biological substances; Z79.82 Long term (current) use of aspirin; Z79.899 Other long term (current) drug therapy

== ENCOUNTER 2017-09-08 19:54 | Emergency (ER) | payer OTHER ==
[~2017-09-08] VITALS: Wt 103.0 kg
[~2017-09-08 19:54] MED LIST changes: +CONSTULOSE10 GM/151 PO; +CYMBALTA60 MG PO; +PLAVIX75 M1 PO
[2017-09-08] MEDS ORDERED: ENULOSE10 GM/151 PO ×2 (19:57→19:58)
[2017-09-08] MEDS ORDERED: ACETAMINOPHEN325 M2 PO (20:01)
[2017-09-08 20:24] LABS: BASO # 0.1 10*3/uL (0.0-0.1); BASO % 0.8 % (0.0-1.0); EOS # 0.3 10*3/uL (0.0-0.4); EOS % 5.1 % (1.0-4.0); HEMATOCRIT 33.2 % (37.0-47.0); HEMOGLOBIN 10.7 g/dl (12.0-16.0); LYMPH # 3.2 10*3/uL (1.3-4.4); LYMPH % 49.5 % (27.0-41.0); MEAN CELL VOLUME 90.7 fl (81.0-99.0); MEAN CORPUSCULAR HGB 29.2 pg (27.0-31.0); MEAN CORPUSCULAR HGB CONC 32.2 g/dl (33.0-37.0); MEAN PLATELET VOLUME 11.4 fl (9.6-12.3); MONO # 0.8 10*3/uL (0.1-1.0); MONO % 11.6 % (3.0-9.0); NEUT # 2.1 10*3/uL (2.3-7.9); NEUT % 32.8 % (47.0-73.0); PLATELET COUNT AUTOMATED 145 10*3/uL (130-400); RED BLOOD COUNT 3.66 10*6/uL (4.10-5.10); RED CELL DISTRI WIDTH 14.5 % (0-14.5); WHITE BLOOD COUNT 6.4 10*3/uL (4.8-10.8)
[2017-09-08 20:34] LABS: ACT PARTIAL THROMBO TIME 25.4 SECONDS (20.8-31.5)
[2017-09-08 20:40] LABS: ALBUMIN 2.9 gm/dl (3.1-4.5); ALKALINE PHOSPHATASE 79 U/L (45-117); BUN 13 mg/dl (7-24); CHLORIDE 111 mmol/L (98-107); CREATININE 1.13 mg/dL (0.55-1.02); POTASSIUM 3.6 mmol/L (3.5-5.1); SGOT/AST 21 IU/L (3-35); SGPT/ALT 13 U/L (12-78); SODIUM 145 mmol/L (136-145); TOTAL PROTEIN 6.1 gm/dL (6.4-8.2); TROPONIN I < 0.015 ng/ml (<0.045)
[2017-09-08 21:58] LABS: BILIRUBIN NEGATIVE (NEGATIVE); BLOOD 1+ (NEGATIVE); CLARITY SL CLOUDY (CLEAR); COLOR YELLOW (YELLOW); GLUCOSE NEGATIVE (NEGATIVE); KETONE NEGATIVE (NEGATIVE); LEUKO ESTERASE NEGATIVE (NEGATIVE); NITRITE NEGATIVE (NEGATIVE); PH 5.5 (5.0-9.0); SPECIFIC GRAVITY 1.015 (1.005-1.030)
[2017-09-08 22:14] LABS: BACTERIA 2+; EPITHELIAL CELLS 0-2; WBC 0-2 wbc/hpf (0-5)
[2017-09-08 23:52] VITALS: BP 155/60
== END 2017-09-08 20:27 | disposition short-term general hospital (02) ==
LOC: ED 19:54
PROVIDERS: Student in an Organized Health Care Education/Training Program
DX: K72.90 Hepatic failure, unspecified without coma (principal); I13.0 Hypertensive heart and chronic kidney disease with heart failure and stage 1 through stage 4 chronic kidney disease, or unspecified chronic kidney disease; E11.22 Type 2 diabetes mellitus with diabetic chronic kidney disease; N18.9 Chronic kidney disease, unspecified; I50.30 Unspecified diastolic (congestive) heart failure; E78.5 Hyperlipidemia, unspecified; E03.9 Hypothyroidism, unspecified; E11.40 Type 2 diabetes mellitus with diabetic neuropathy, unspecified; F17.200 Nicotine dependence, unspecified, uncomplicated; Z88.8 Allergy status to other drugs, medicaments and biological substances; Z79.4 Long term (current) use of insulin; Z79.899 Other long term (current) drug therapy; Z79.82 Long term (current) use of aspirin